=== PATIENT | female | born 1950 | race Two or more races ===

== ENCOUNTER 2017-06-21 15:01 | Outpatient (CLI) | payer OTHER ==
[~2017-06-21] VITALS: Ht 152.4 cm; Wt 56.4 kg
[~2017-06-21 15:01] MED LIST: AMLO-147 PO; ASPI81TA3 PO; CALC667T PO; HYDR-3498 PO; LABE100T39 PO; LISI2.5T59 PO
[2017-06-21 15:15] VITALS: Ht 152.4 cm; Wt 56.4 kg
[2017-06-21 15:16] VITALS: BP 141/67; PULSE 78; RESP 16
--- NOTE | 2017-06-21 15:55 | PN ---
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 loss, no Fatigue, normal appetite, no diaphoresis. Eyes: No pain, no discharge, no redness, no visual change, no foreign body. ENT: No pain, no bleeding, no congestion, no sore throat, no dysphagia, no discharge or rhinitis. Lymph: No adenopathy, no tender nodes, no lymphedema. Resp: No SOB, no cough, no sputum, no wheezing, no chest pain. CV: No chest pain, no palpitaions, no HERRERA, no PND, no edema. GI: Normal appetite, no pain at present, patient had moderately severe abdominal pain, was hospitalized, at present no pain,, no nausea, no vomiting, no diarrhea, no blood, no constipation. : No frequency, no urgency, no dysuria, no hematuria, no flank pain, no discharge, no bleeding. Musc: No back pain, no neck pain, no knee pain, no restricted ROM. Skin: No rash, no skin lesions, no erythema, no laceration, no bruising, no pruritus. Neuro: No ABREU, no dizziness, no syncope, no seizure, no focal-weakness. Endo: No polyuria, no polydypsia, no dry-skin, no temp-intolerance. Psych: No hallucinations, no depression, no anxiety, no suicidal ideation. Ext: No edema, no pain, no ulcer, no weakness patient has AV fistula on left arm ,. Physical Exam Vital Signs Date Time Temp Pulse Resp B/P Pulse Ox O2 Delivery O2 Flow Rate FiO2 06/21/17 15:16 98.3 78 16 141/67 98 Room Air General Appearance: A 66 year-old female who appears well-developed, well- nourished, in no acute distress. HEENT: Head normocephalic, atraumatic. Pupils equal, round, reactive to light and accommodate. Sclerae are no jaundice. Nasal turbinates pink without erythema or nasal discharge. Mucous membranes pink and moist without lesions. Oropharynx clear without any exudate or discharge. NECK: Supple. Trachea midline, No thyromegaly, No cervical lymphadenopathy, No mass, No carotid bruits, No JVD, Carotid pulses 2+ bilaterally. PULMONARY: Clear to auscultaion bilaterally, No retractions, Chest expansion symmetric bilaterally, no rales, no ronchi, no dulness on percussion. CARDIAC: Normal SI and S2, Regular rate and rythm, no murmur, gallop, or rub. GASTROINTESTINAL: Abdomen is soft, non-tender, Non Rigid, No distention, Positive bowel sounds x4 quadrants, Liver normal. SKIN: Warm, dry, no rash, no bruise, no echmosis. EXTREMITIES: Bilateral lower extremities normal, no edema, left upper arm AV fistula, no phlabitus, pulse palpable, no contracture. MUSCULOSKELETAL: Spine Normal, Non-tender, Normal range of motion, No swelling, no deformity, no clubbing, or cyanosis, the patient has no edema to bilateral lower extremities, dorsalis pedis pulses palpable bilaterally. NEUROLOGIC: The patient is awake, alert, oriented, responding to yes/no questions appropriately, moving all extremities, cranial nerve intact, normal strenght, normal power, normal coordination, normal gait. 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 Plan Patient education done about her condition and disease, and prognosis, Patient encouraged to follow with the primary care physician Patient has all the medication, patient has appointment with the primary care physician, in few days, Patient advised to increase activity slowly, Medications Home Meds Reported Medications Aspirin (Aspirin) 81 Mg Chew, 81 MG PO DAILY, TAB.CHEW 02/26/16 Calcium Acetate (Calcium Acetate) 667 Mg Tablet, 3 TAB PO TID, #30 TAB 02/26/16 Amlodipine Besylate* (Amlodipine Besylate*) 10 Mg Tablet, 10 MG PO DAILY, #30 TAB 02/26/16 Discontinued Reported Medications Hydrocodone Bit-Acetaminophen* ([place]*) 5-325 Mg Tab, 1 TAB PO Q6 for PAIN, TAB 02/26/16 Lisinopril* (Lisinopril*) 2.5 Mg Tablet, 2.5 MG PO DAILY, #30 TAB 02/26/16 Labetalol Hcl (Labetalol Hcl) 100 Mg Tab, 200 MG PO BID, TAB 02/26/16 FABIO BROOKS MD Jun 21, 2017 15:55
== END 2017-06-21 17:04 | disposition home or self-care (01) ==
LOC: DCC 15:01
PROVIDERS: ATTEND Internal Medicine
DX: I12.0 Hypertensive chronic kidney disease with stage 5 chronic kidney disease or end stage renal disease (principal); N18.6 End stage renal disease; Z99.2 Dependence on renal dialysis; K27.9 Peptic ulcer, site unspecified, unspecified as acute or chronic, without hemorrhage or perforation; R79.89 Other specified abnormal findings of blood chemistry; I77.4 Celiac artery compression syndrome; K55.1 Chronic vascular disorders of intestine
CPT/HCPCS: G0463; Z7500